=== PATIENT | female | born 2000 | race Caucasian/White ===

== ENCOUNTER 2021-11-13 17:09 | Emergency (ER) | payer BC ==
[~2021-11-13] VITALS: Ht 162.6 cm; Wt 50.0 kg
[2021-11-13 17:43] VITALS: BP 130/83
[2021-11-13] MEDS ORDERED: LIDOcaine 1% W/epiNEPHrine 1:100,000 20ml vial SQ ONE (17:50)
[2021-11-13] MEDS ORDERED: LIDOCAINE 2% w/EPI 1:100:000 30mL injection MDV**cath lab 1 only SQ ONE (17:55)
[2021-11-13] MEDS ORDERED: HYDROcodone/acetaminophen 5mg/325mg tablet PO ONE (17:55)
[2021-11-13] MEDS ORDERED: HYDROcodone/acetaminophen 10/325mg tab PO ONE (18:45)
== END 2021-11-13 19:08 | disposition home or self-care (01) ==
LOC: ER 17:11
DX: S61.211A Laceration without foreign body of left index finger without damage to nail, initial encounter (principal); F32.A Depression, unspecified; F12.10 Cannabis abuse, uncomplicated; W45.8XXA Other foreign body or object entering through skin, initial encounter; Y93.89 Activity, other specified; Y92.89 Other specified places as the place of occurrence of the external cause; Y99.8 Other external cause status
CPT/HCPCS: 12001; 99283